=== PATIENT | male | born 1965 | race Caucasian/White ===

== ENCOUNTER → 2018-09-28 | Outpatient (CLI) | payer BC | LOC: M.MRI 09-20 13:45 | DX: M50.223 Other cervical disc displacement at C6-C7 level (principal); M48.02 Spinal stenosis, cervical region; M47.894 Other spondylosis, thoracic region; M54.12 Radiculopathy, cervical region; M53.82 Other specified dorsopathies, cervical region; M79.641 Pain in right hand; R20.2 Paresthesia of skin; M25.78 Osteophyte, vertebrae ==